=== PATIENT | female | born 1935 | race Caucasian/White ===

== ENCOUNTER 2017-10-18 11:58 | Inpatient (IN) | payer MEDICARE, BC ==
[2017-10-18] MEDS ORDERED: Ondansetron 4 MG Tab.DIS PO PRN (14:57)
[2017-10-18] MEDS ORDERED: Docusate Sodium 100 MG Cap PO PRN (14:57)
[2017-10-18] MEDS ORDERED: Ibuprofen 400 MG Tab PO PRN (14:57)
[2017-10-18] MEDS ORDERED: Acetaminophen 325 MG Tab PO PRN (14:57)
[2017-10-18] MEDS ORDERED: Non-Formulary Medication 1 Each (Estradiol [Estrace 0.01% Vaginal Crm] 1 APPLIC) VAG SCH ×2 (15:15→15:30)
[2017-10-18] MEDS ORDERED: Non-Formulary Medication 1 Each (Acetaminophen [Tylenol] 650 MG) PO SCH (15:15)
--- NOTE | 2017-10-18 16:58 | ER ---
DATE SEEN: 10/18/2017 The patient has a cath urine specimen performed and pH was 7, large leukocyte esterase, greater than 100 wbc's, few epithelial cells, many bacteria. Culture pending. Possibly she may be having asymptomatic bacteriuria (high probability), so may not be needed to be treated according to [place] [employer] recommendation for her age. She is on nitrofurantoin. She will use that until the prescription is finalized. At present, asymptomatic bacteriuria and in reality would probably get along without this antibiotic, but I will defer to the discretion doctor who prescribed this medicine. Also according to the Beers criteria and ASID recommendations : not treat asymptomatic bacteriuria as it could increase resistance and also increase invasive other noncommensal organisms. /[id number] JONY/MARLEY BARRIENTOS
--- NOTE | 2017-10-18 17:11 | PCM.HP ---
H&P History of Present Illness - General Date of Service: 10/18/17 Admit Problem/Dx: Admission Diagnosis/Problem Admission Diagnosis/Problem Falls Source of Information: Family History Limitations: Reports: Altered Mental Status - History of Present Illness Initial Comments - Free Text/Narative: This is an 82-year-old female patient this recently moved the area to be closer her daughter. She is had a stroke and some dementia. She is living in an apartment and her daughter went over today and found her on the floor naked calling out her sister. She was not able to get up. His had a CVA in the past. She was taken by EMS the ER and had a CT that was negative reported by the ER doc to me. She has had UTIs and has had the urine has nitrite positive and white cells. The urologist has seen her and felt her urine probably is not clean all the time and not to treat a possible because of resistant strains. The patient states she does not a dysuria or pyuria or hematuria. The daughter states she's had some incontinence. Which is new. The daughter states she's been very confused. No fevers chills or back pain. No coughing or wheezing or diarrhea. - Related Data Allergies/Adverse Reactions: Allergies Allergy/AdvReac Type Severity Reaction Status Date / Time No Known Allergies Allergy Verified 10/18/17 15:06 Home Medications: Home Meds Acetaminophen [Tylenol] 650 mg PO Q4HR 10/18/17 [History] Cholecalciferol (Vitamin D3) [Vitamin D3] 2,000 unit PO DAILY 10/18/17 [History] Docusate Sodium [Colace] 100 mg PO BID 10/18/17 [History] Estradiol [Estrace 0.01% Vaginal Crm] 1 applic VAG ASDIRECTED 10/18/17 [History] Levothyroxine 112 mcg PO ACBREAKFAST 10/18/17 [History] Melatonin 3 mg PO BEDTIME 10/18/17 [History] Multivitamin [Multi-Vitamin Daily] 1 tab PO DAILY 10/18/17 [History] Nitrofurantoin Monohyd/M-Cryst [Macrobid 100 mg Capsule] 100 mg PO BID 10/18/17 [History] Pantoprazole Sodium [Protonix] 40 mg PO ACBREAKFAST 10/18/17 [History] Ranitidine HCl [Zantac] 150 mg PO DAILY 10/18/17 [History] Rivaroxaban [Xarelto] 20 mg PO WITHDINNER 10/18/17 [History] Rosuvastatin [Crestor] 20 mg PO DAILY 10/18/17 [History] Past Medical History HEENT History: Reports: Hard of Hearing, Impaired Vision Cardiovascular History: Reports: High Cholesterol, Hypertension, Pacemaker, Other (See Below) (A. fib) Respiratory History: Reports: Other (See Below) Other Respiratory History: former smoker. Gastrointestinal History: Reports: GERD Genitourinary History: Reports: Urinary Incontinence, UTI, Recurrent, Other ( See Below) Other Genitourinary History: has overactive bladder-takes oxybutynin. 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 Use walker for ambulation. Neurological History: Reports: CVA Endocrine/Metabolic History: Reports: Hypothyroidism Oncologic (Cancer) History: Reports: Other (See Below) (Papillary thyroid carcinoma) - Infectious Disease History Infectious Disease History: Reports: Other (See Below) Other Infectious Disease History: pt poor historian for this information - Past Surgical History Respiratory Surgical History: Reports: Lung Biopsies Social & Family History - Family History Family Medical History: Noncontributory - Tobacco Use Smoking Status *Q: Former Smoker Years of Tobacco use: 40 Packs/Tins Daily: 0.5 Used Tobacco, but Quit: Yes Month/Year Tobacco Last Used: unknown - Caffeine Use Caffeine Use: Reports: Coffee Other Caffeine Use: 1 cup a day - Recreational Drug Use Recreational Drug Use: No H&P Review of Systems - Review of Systems: Review Of Systems: See Below General: Reports: Weakness HEENT: Reports: No Symptoms Pulmonary: Reports: No Symptoms Cardiovascular: Reports: No Symptoms Gastrointestinal: Reports: No Symptoms Genitourinary: Reports: No Symptoms Musculoskeletal: Reports: No Symptoms Skin: Reports: No Symptoms Psychiatric: Reports: Confusion (Per daughter) Neurological: Reports: No Symptoms Hematologic/Lymphatic: Reports: No Symptoms Immunologic: Reports: No Symptoms Exam - Exam Exam: See Below - Vital Signs Vital Signs: Last Vital Signs Temp 98.0 F 10/18/17 12:16 Pulse 63 10/18/17 14:00 Resp 21 H 10/18/17 14:00 BP 146/82 H 10/18/17 14:00 Pulse Ox 95 10/18/17 14:00 Weight: 160 lb 14.4 oz - Exam General: Alert, Cooperative. No: Oriented HEENT: Hearing Intact, Mucosa Moist & [place], Posterior Pharynx Clear, TMs Clear Neck: Supple, Trachea Midline. No: Lymphadenopathy, Carotid Bruit, JVD Lungs: Clear to Auscultation, Normal Respiratory Effort. No: Crackles, Rales, Rhonchi, Rub Cardiovascular: Regular Rate, Regular Rhythm. No: Tachycardia GI/Abdominal Exam: Normal Bowel Sounds, Soft, Non-Tender, No Distention, No Abnormal Bruit, No Mass Back Exam: Normal Inspection, Full Range of Motion. No: Vertebral Tenderness Extremities: Normal Inspection, Normal Range of Motion, Non-Tender, No Pedal Edema, Normal Capillary Refill Skin: Warm, Dry, Intact Neurological: Normal Speech, Normal Tone Neuro Extensive - Mental Status: Alert, Normal Mood/Affect. No: Oriented x3, Normal Cognition Psychiatric: Alert - Patient Data Lab Results Last 24 hrs: Laboratory Results - last 24 hr 10/18/17 10/18/17 10/18/17 Range/Units 12:45 12:45 12:45 WBC 11.6 (4.5-12.0) X10-3/uL RBC 4.98 (3.23-5.20) x10(6)uL Hgb 15.2 (11.5-15.5) g/dL Hct 44.6 (30.0-51.3) % MCV 89.5 (80-96) fL MCH 30.6 (27.7-33.6) pg MCHC 34.2 (32.2-35.4) g/dL RDW 12.8 (11.5-15.5) % Plt Count 190 (125-369) X10(3)uL MPV 7.5 (7.4-10.4) fL Neut % (Auto) 83.8 H (46-82) % Lymph % (Auto) 6.9 L (13-37) % Ponce % (Auto) 7.5 (4-12) % Eos % (Auto) 1 (1.0-5.0) % Baso % (Auto) 1 (0-2) % Neut # (Auto) 9.7 H (1.6-8.3) # Lymph # (Auto) 0.8 (0.6-5.0) # Ponce # (Auto) 0.9 (0.0-1.3) # Eos # (Auto) 0.1 (0.0-0.8) # Baso # (Auto) 0.1 (0.0-0.2) # PT 10.4 (8.7-11.1) INR 1.07 (0.89-1.13) APTT (24.4-33.2) SECONDS Sodium 140 (135-145) mmol/L Potassium 4.0 (3.5-5.3) mmol/L Chloride 103 (100-110) mmol/L Carbon Dioxide 25 (21-32) mmol/L BUN 23 H (7-18) mg/dL Creatinine 1.3 H (0.55-1.02) mg/dL Est Cr Clr Drug Dosing 28.31 mL/min Estimated GFR (MDRD) 39 L (>60) BUN/Creatinine Ratio 17.7 (9-20) Glucose 130 H (80-116) mg/dL Calcium 10.1 (8.6-10.2) mg/dL Total Bilirubin 0.7 (0.1-1.3) mg/dL AST 16 (5-25) IU/L ALT 18 (12-36) U/L Alkaline Phosphatase 76 (56-112) IU/L Creatine Kinase 66 (60-160) IU/L Troponin I (<0.017-0.056) ng/mL NT-Pro-B Natriuret Pep (<=450) pg/mL Total Protein 7.2 (6.0-8.0) g/dL Albumin 3.8 (3.2-4.6) g/dL Globulin 3.4 g/dL Albumin/Globulin Ratio 1.1 Urine Color (YELLOW) Urine Appearance (CLEAR) Urine pH (5.0-6.5) Ur Specific [place] (1.010-1.025) Urine Protein (NEGATIVE) mg/dL Urine Glucose (UA) (NEGATIVE) mg/dL Urine Ketones (NEGATIVE) mg/dL Urine Occult Blood (NEGATIVE) Urine Nitrite (NEGATIVE) Urine Bilirubin (NEGATIVE) Urine Urobilinogen (NEGATIVE) mg/dL Ur Leukocyte Esterase (NEGATIVE) Urine RBC (0) Urine WBC (0) Ur Squamous Epith Cells (NS,R,O) Urine Bacteria (NS) 10/18/17 10/18/1710/18/18 Range/Units 12:45 12:45 14:11 WBC (4.5-12.0) X10-3/uL RBC (3.23-5.20) x10(6)uL Hgb (11.5-15.5) g/dL Hct (30.0-51.3) % MCV (80-96) fL MCH (27.7-33.6) pg MCHC (32.2-35.4) g/dL RDW (11.5-15.5) % Plt Count (125-369) X10(3)uL MPV (7.4-10.4) fL Neut % (Auto) (46-82) % Lymph % (Auto) (13-37) % Ponce % (Auto) (4-12) % Eos % (Auto) (1.0-5.0) % Baso % (Auto) (0-2) % Neut # (Auto) (1.6-8.3) # Lymph # (Auto) (0.6-5.0) # Ponce # (Auto) (0.0-1.3) # Eos # (Auto) (0.0-0.8) # Baso # (Auto) (0.0-0.2) # PT (8.7-11.1) INR (0.89-1.13) APTT 27.2 (24.4-33.2) SECONDS Sodium (135-145) mmol/L Potassium (3.5-5.3) mmol/L Chloride (100-110) mmol/L Carbon Dioxide (21-32) mmol/L BUN (7-18) mg/dL Creatinine (0.55-1.02) mg/dL Est Cr Clr Drug Dosing mL/min Estimated GFR (MDRD) (>60) BUN/Creatinine Ratio (9-20) Glucose (80-116) mg/dL Calcium (8.6-10.2) mg/dL Total Bilirubin (0.1-1.3) mg/dL AST (5-25) IU/L ALT (12-36) U/L Alkaline Phosphatase (56-112) IU/L Creatine Kinase (60-160) IU/L Troponin I < 0.017 L (<0.017-0.056) ng/mL NT-Pro-B Natriuret Pep 243 (<=450) pg/mL Total Protein (6.0-8.0) g/dL Albumin (3.2-4.6) g/dL Globulin g/dL Albumin/Globulin Ratio Urine Color Yellow (YELLOW) Urine Appearance Cloudy (CLEAR) Urine pH 7.0 H (5.0-6.5) Ur Specific [place] 1.015 (1.010-1.025) Urine Protein Negative (NEGATIVE) mg/dL Urine Glucose (UA) Normal (NEGATIVE) mg/dL Urine Ketones Negative (NEGATIVE) mg/dL Urine Occult Blood Negative (NEGATIVE) Urine Nitrite Negative (NEGATIVE) Urine Bilirubin Negative (NEGATIVE) Urine Urobilinogen Normal (NEGATIVE) mg/dL Ur Leukocyte Esterase Large H (NEGATIVE) Urine RBC 0-5 (0) Urine WBC >100 H (0) Ur Squamous Epith Cells Few H (NS,R,O) Urine Bacteria Many H (NS) Result Diagrams: 10/18/17 12:45 10/18/17 12:45 - Problem List (1) UTI (urinary tract infection) SNOMED Code(s): 29506944 ICD Code: N39.0 - URINARY TRACT INFECTION, SITE NOT SPECIFIED Status: Acute Current Visit: Yes (2) Confusion SNOMED Code(s): 936324511 ICD Code: R41.0 - DISORIENTATION, UNSPECIFIED Status: Acute Current Visit : Yes (3) Dementia SNOMED Code(s): 11797390 ICD Code: F03.90 - UNSPECIFIED DEMENTIA WITHOUT BEHAVIORAL DISTURBANCE Status: Acute Current Visit: Yes (4) Fall SNOMED Code(s): 8248534, 897368457 ICD Code: W19.XXXA - UNSPECIFIED FALL, INITIAL ENCOUNTER Status: Acute Current Visit: Yes (5) Palliative care status SNOMED Code(s): 954355305 ICD Code: Z51.5 - ENCOUNTER FOR PALLIATIVE CARE Status: Acute Current Visit: Yes Problem List Initiated/Reviewed/Updated: Yes Orders Last 24hrs: Active Orders 24 hr Category Date Time Status Patient Status [ADT] Routine ADT 10/18/17 14:57 Active Cardiac Monitoring [RC] 08,16,00 Care 10/18/17 15:00 Active Communication Order [RC] ROUTINE Care 10/18/17 15:04 Active EKG Documentation Completion [RC] ASDIRECTED Care 10/18/17 12:33 Active Insert Urinary Catheter [OM.PC] Q24H Care 10/18/17 14:00 Ordered Oxygen Therapy [RC] PRN Care 10/18/17 14:57 Active Pulse Oximetry [RC] PRN Care 10/18/17 15:01 Active Up With Assistance [RC] 09,13,17,21 Care 10/18/17 14:57 Active VTE/DVT Education [RC] Per Unit Routine Care 10/18/17 14:57 Active Vital Signs [RC] 04,08,12,16,20,00 Care 10/18/17 14:57 Active Cervical Spine wo Cont [CT] Stat Exams 10/18/17 12:32 Taken Chest 1V Frontal [CR] Stat Exams 10/18/17 13:36 Taken Head wo Cont [CT] Stat Exams 10/18/17 12:32 Taken CULTURE URINE [RM] Stat Lab 10/18/17 14:40 Ordered URINALYSIS W/MICROSCOPIC [UA W/MICROSCOPIC] [URIN] Stat Lab 10/18/17 14:11 Ordered Acetaminophen [Tylenol] Med 10/18/17 14:57 Active 650 mg PO Q4H PRN Acetaminophen [Tylenol] Med 10/18/17 15:15 Pending 650 mg PO Q4HR Cholecalciferol (Vitamin D3) [Vitamin D3] Med 10/19/17 09:00 Active 2,000 units PO DAILY Docusate Sodium [Colace] Med 10/18/17 21:00 Active 100 mg PO BID Docusate Sodium [Colace] Med 10/18/17 14:57 Active 100 mg PO BID PRN Estradiol [Estrace 0.01% Vaginal Crm] Med 10/18/17 15:30 Pending 1 applic VAG ASDIRECTED Famotidine [Pepcid] Med 10/19/17 09:00 Active 20 mg PO DAILY Ibuprofen [Motrin] Med 10/18/17 14:57 Active 400 mg PO Q6H PRN Levothyroxine Med 10/19/17 06:00 Active 112 mcg PO DAILY@0600 Multivitamins [Tab-A-Latoya] Med 10/19/17 09:00 Active 1 tab PO DAILY Nitrofurantoin Monohyd/M-Cryst [Macrobid 100 Mg Capsule Med 10/18/17 21:00 Pending ] 100 mg PO BID Ondansetron [Zofran ODT] Med 10/18/17 14:57 Active 4 mg PO Q6H PRN Pantoprazole [ProTONIX] Med 10/19/17 07:30 Active 40 mg PO ACBREAKFAST Rivaroxaban [Xarelto] Med 10/18/17 18:00 Active 20 mg PO WITHDINNER Rosuvastatin [Crestor] Med 10/19/17 09:00 Active 20 mg PO DAILY Resuscitation Status Routine Resus Stat 10/18/17 14:57 Ordered EKG 12 Lead [EK] Routine Ther 10/18/17 12:32 Ordered Medication Orders Acetaminophen (Tylenol) 650 mg PO Q4H PRN PRN Reason: Pain (Mild 1-3)/fever Cholecalciferol (Vitamin D3) 2,000 units PO DAILY [facility] Docusate Sodium (Colace) 100 mg PO BID PRN PRN Reason: Constipation Docusate Sodium (Colace) 100 mg PO BID [facility] Famotidine (Pepcid) 20 mg PO DAILY [facility] Ibuprofen (Motrin) 400 mg PO Q6H PRN PRN Reason: Pain (mild 1-3) Levothyroxine Sodium (Levothyroxine) 112 mcg PO DAILY@0600 [facility] Multivitamins/Minerals/Vitamin C (Tab-A-Latoya) 1 tab PO DAILY [facility] Non-Formulary Medication (Acetaminophen [Tylenol]) 650 mg PO Q4HR [facility] Non-Formulary Medication (Estradiol [Estrace 0.01% Vaginal Crm]) 1 applic VAG ASDIRECTED [facility] Non-Formulary Medication (Nitrofurantoin Monohyd/M-Cryst [Macrobid 100 Mg Capsule]) 100 mg PO BID [facility] Ondansetron HCl (Zofran Odt) 4 mg PO Q6H PRN PRN Reason: nausea, able to take PO Pantoprazole Sodium (Protonix) 40 mg PO ACBREAKFAST [facility] Rivaroxaban (Xarelto) 20 mg PO WITHDINNER [facility] Rosuvastatin Calcium (Crestor) 20 mg PO DAILY [facility] Assessment/Plan Comment:: . Admit for observation. 2. Rocephin 1 g every 24 hours 3. Restart medications 4. VTE prophylaxis-continues her Xarelto 5. Up with assist. 6. Regular diet
[2017-10-18] MEDS ORDERED: cefTRIAXone 1,000 MG in Sodium Chloride 0.9% 50 ML IV SCH (17:30)
[2017-10-18] MEDS ORDERED: cefTRIAXone 1,000 MG VIAL IVPUSH SCH (17:30)
[2017-10-18] MEDS: Sodium Chloride 0.9% 1,000 ML IV SCH (17:43)
[2017-10-18] MEDS: cefTRIAXone 1,000 MG VIAL IV SCH (17:50)
[2017-10-18] MEDS ORDERED: Rivaroxaban 10 MG Tab PO SCH (18:00)
[2017-10-18] MEDS ORDERED: RANTIDINE PO SCH (21:15)
[2017-10-19] MEDS: Sodium Chloride 0.9% 1,000 ML IV SCH (03:18)
[2017-10-19] MEDS ORDERED: Levothyroxine 112 MCG Tab **OWN MED PO SCH (06:00)
[2017-10-19] MEDS: Pantoprazole 40 MG Tab.CR PO SCH (08:21)
[2017-10-19] MEDS ORDERED: ROSUVASTATIN 20 MG PO SCH (09:00)
[2017-10-19] MEDS ORDERED: MULTIVITAMIN PO SCH (09:00)
[2017-10-19] MEDS ORDERED: CHOLECALCIFEROL PO SCH (09:00)
[2017-10-19] MEDS ORDERED: Famotidine 20 MG Tab PO SCH (09:00)
--- NOTE | 2017-10-19 09:27 | PCM.PN ---
- General Info Date of Service: 10/19/17 Admission Dx/Problem (Free Text): Patient states she feels tired today. Nurses report she is confused and needed to assist last night to walk in 1 today. She denies dysuria, pyuria. Nurses reported she did have some urinary incontinence yesterday but none today. He denies fevers, chills. she does not know who the president is but she does remember that she is in the hospital but she thinks it somewhere else. - Patient Data Vitals - Most Recent: Last Vital Signs Temp 98.6 F 10/19/17 03:30 Pulse 65 10/19/17 03:30 Resp 18 10/19/17 03:30 BP 115/63 10/19/17 03:30 Pulse Ox 95 10/19/17 03:30 Weight - Most Recent: 160 lb 14.4 oz I&O - Last 24 Hours: Intake & Output 10/18/17 10/19/17 10/19/17 22:59 06:59 14:59 Intake Total 341 773 Balance 341 773 Lab Results Last 24 Hours: Laboratory Results - last 24 hr 10/18/17 10/18/17 10/18/17 Range/Units 12:45 12:45 12:45 WBC 11.6 (4.5-12.0) X10-3/uL RBC 4.98 (3.23-5.20) x10(6)uL Hgb 15.2 (11.5-15.5) g/dL Hct 44.6 (30.0-51.3) % MCV 89.5 (80-96) fL MCH 30.6 (27.7-33.6) pg MCHC 34.2 (32.2-35.4) g/dL RDW 12.8 (11.5-15.5) % Plt Count 190 (125-369) X10(3)uL MPV 7.5 (7.4-10.4) fL Neut % (Auto) 83.8 H (46-82) % Lymph % (Auto) 6.9 L (13-37) % Henry % (Auto) 7.5 (4-12) % Eos % (Auto) 1 (1.0-5.0) % Baso % (Auto) 1 (0-2) % Neut # (Auto) 9.7 H (1.6-8.3) # Lymph # (Auto) 0.8 (0.6-5.0) # Henry # (Auto) 0.9 (0.0-1.3) # Eos # (Auto) 0.1 (0.0-0.8) # Baso # (Auto) 0.1 (0.0-0.2) # PT 10.4 (8.7-11.1) INR 1.07 (0.89-1.13) APTT (24.4-33.2) SECONDS Sodium 140 (135-145) mmol/L Potassium 4.0 (3.5-5.3) mmol/L Chloride 103 (100-110) mmol/L Carbon Dioxide 25 (21-32) mmol/L BUN 23 H (7-18) mg/dL Creatinine 1.3 H (0.55-1.02) mg/dL Est Cr Clr Drug Dosing 28.31 mL/min Estimated GFR (MDRD) 39 L (>60) BUN/Creatinine Ratio 17.7 (9-20) Glucose 130 H (80-116) mg/dL Calcium 10.1 (8.6-10.2) mg/dL Total Bilirubin 0.7 (0.1-1.3) mg/dL AST 16 (5-25) IU/L ALT 18 (12-36) U/L Alkaline Phosphatase 76 (56-112) IU/L Creatine Kinase 66 (60-160) IU/L Troponin I (<0.017-0.056) ng/mL NT-Pro-B Natriuret Pep (<=450) pg/mL Total Protein 7.2 (6.0-8.0) g/dL Albumin 3.8 (3.2-4.6) g/dL Globulin 3.4 g/dL Albumin/Globulin Ratio 1.1 Urine Color (YELLOW) Urine Appearance (CLEAR) Urine pH (5.0-6.5) Ur Specific Levels (1.010-1.025) Urine Protein (NEGATIVE) mg/dL Urine Glucose (UA) (NEGATIVE) mg/dL Urine Ketones (NEGATIVE) mg/dL Urine Occult Blood (NEGATIVE) Urine Nitrite (NEGATIVE) Urine Bilirubin (NEGATIVE) Urine Urobilinogen (NEGATIVE) mg/dL Ur Leukocyte Esterase (NEGATIVE) Urine RBC (0) Urine WBC (0) Ur Squamous Epith Cells (NS,R,O) Urine Bacteria (NS) 10/18/17 10/18/17 10/18/17 Range/Units 12:45 12:45 14:11 WBC (4.5-12.0) X10-3/uL RBC (3.23-5.20) x10(6)uL Hgb (11.5-15.5) g/dL Hct (30.0-51.3) % MCV (80-96) fL MCH (27.7-33.6) pg MCHC (32.2-35.4) g/dL RDW (11.5-15.5) % Plt Count (125-369) X10(3)uL MPV (7.4-10.4) fL Neut % (Auto) (46-82) % Lymph % (Auto) (13-37) % Henry % (Auto) (4-12) % Eos % (Auto) (1.0-5.0) % Baso % (Auto) (0-2) % Neut # (Auto) (1.6-8.3) # Lymph # (Auto) (0.6-5.0) # Henry # (Auto) (0.0-1.3) # Eos # (Auto) (0.0-0.8) # Baso # (Auto) (0.0-0.2) # PT (8.7-11.1) INR (0.89-1.13) APTT 27.2 (24.4-33.2) SECONDS Sodium (135-145) mmol/L Potassium (3.5-5.3) mmol/L Chloride (100-110) mmol/L Carbon Dioxide (21-32) mmol/L BUN (7-18) mg/dL Creatinine (0.55-1.02) mg/dL Est Cr Clr Drug Dosing mL/min Estimated GFR (MDRD) (>60) BUN/Creatinine Ratio (9-20) Glucose (80-116) mg/dL Calcium (8.6-10.2) mg/dL Total Bilirubin (0.1-1.3) mg/dL AST (5-25) IU/L ALT (12-36) U/L Alkaline Phosphatase (56-112) IU/L Creatine Kinase (60-160) IU/L Troponin I < 0.017 L (<0.017-0.056) ng/mL NT-Pro-B Natriuret Pep 243 (<=450) pg/mL Total Protein (6.0-8.0) g/dL Albumin (3.2-4.6) g/dL Globulin g/dL Albumin/Globulin Ratio Urine Color Yellow (YELLOW) Urine Appearance Cloudy (CLEAR) Urine pH 7.0 H (5.0-6.5) Ur Specific Levels 1.015 (1.010-1.025) Urine Protein Negative (NEGATIVE) mg/dL Urine Glucose (UA) Normal (NEGATIVE) mg/dL Urine Ketones Negative (NEGATIVE) mg/dL Urine Occult Blood Negative (NEGATIVE) Urine Nitrite Negative (NEGATIVE) Urine Bilirubin Negative (NEGATIVE) Urine Urobilinogen Normal (NEGATIVE) mg/dL Ur Leukocyte Esterase Large H (NEGATIVE) Urine RBC 0-5 (0) Urine WBC >100 H (0) Ur Squamous Epith Cells Few H (NS,R,O) Urine Bacteria Many H (NS) 10/19/17 Range/Units 06:00 WBC (4.5-12.0) X10-3/uL RBC (3.23-5.20) x10(6)uL Hgb (11.5-15.5) g/dL Hct (30.0-51.3) % MCV (80-96) fL MCH (27.7-33.6) pg MCHC (32.2-35.4) g/dL RDW (11.5-15.5) % Plt Count (125-369) X10(3)uL MPV (7.4-10.4) fL Neut % (Auto) (46-82) % Lymph % (Auto) (13-37) % Henry % (Auto) (4-12) % Eos % (Auto) (1.0-5.0) % Baso % (Auto) (0-2) % Neut # (Auto) (1.6-8.3) # Lymph # (Auto) (0.6-5.0) # Henry # (Auto) (0.0-1.3) # Eos # (Auto) (0.0-0.8) # Baso # (Auto) (0.0-0.2) # PT (8.7-11.1) INR (0.89-1.13) APTT (24.4-33.2) SECONDS Sodium 140 (135-145) mmol/L Potassium 4.0 (3.5-5.3) mmol/L Chloride 107 (100-110) mmol/L Carbon Dioxide 25 (21-32) mmol/L BUN 21 H (7-18) mg/dL Creatinine 1.2 H (0.55-1.02) mg/dL Est Cr Clr Drug Dosing 30.67 mL/min Estimated GFR (MDRD) 43 L (>60) BUN/Creatinine Ratio 17.5 (9-20) Glucose 113 (80-116) mg/dL Calcium 9.0 (8.6-10.2) mg/dL Total Bilirubin (0.1-1.3) mg/dL AST (5-25) IU/L ALT (12-36) U/L Alkaline Phosphatase (56-112) IU/L Creatine Kinase (60-160) IU/L Troponin I (<0.017-0.056) ng/mL NT-Pro-B Natriuret Pep (<=450) pg/mL Total Protein (6.0-8.0) g/dL Albumin (3.2-4.6) g/dL Globulin g/dL Albumin/Globulin Ratio Urine Color (YELLOW) Urine Appearance (CLEAR) Urine pH (5.0-6.5) Ur Specific Levels (1.010-1.025) Urine Protein (NEGATIVE) mg/dL Urine Glucose (UA) (NEGATIVE) mg/dL Urine Ketones (NEGATIVE) mg/dL Urine Occult Blood (NEGATIVE) Urine Nitrite (NEGATIVE) Urine Bilirubin (NEGATIVE) Urine Urobilinogen (NEGATIVE) mg/dL Ur Leukocyte Esterase (NEGATIVE) Urine RBC (0) Urine WBC (0) Ur Squamous Epith Cells (NS,R,O) Urine Bacteria (NS) Med Orders - Current: Current Medications Acetaminophen (Tylenol) 650 mg PO Q4H PRN PRN Reason: Pain (Mild 1-3)/fever Ceftriaxone Sodium (Rocephin) 1,000 mg IV Q24H [facility] Last Admin: 10/18/17 17:50 Dose: 1,000 mg Docusate Sodium (Colace) 100 mg PO BID [facility] Last Admin: 10/19/17 08:21 Dose: 100 mg Sodium Chloride (Normal Saline) 1,000 mls @ 100 mls/hr IV ASDIRECTED [facility] Last Admin: 10/19/17 03:18 Dose: 100 mls/hr Ibuprofen (Motrin) 400 mg PO Q6H PRN PRN Reason: Pain (mild 1-3) Levothyroxine Sodium (Levothyroxine) 112 mcg PO DAILY@0600 [facility] Last Admin: 10/19/17 05:55 Dose: 112 mcg Multivitamins/Minerals/Vitamin C (Tab-A-Latoya) 1 tab PO DAILY [facility] Last Admin: 10/19/17 08:23 Dose: 1 tab Ondansetron HCl (Zofran Odt) 4 mg PO Q6H PRN PRN Reason: nausea, able to take PO Pantoprazole Sodium (Protonix) 40 mg PO ACBREAKFAST [facility] Last Admin: 10/19/17 08:21 Dose: 40 mg Cholecalciferiol Vitamin D3 2000 Iu Tab Own Med 0 each PO DAILY [facility] Last Admin: 10/19/17 08:22 Dose: 1 each Rosuvastatin 20mg (Tab Own Med) 0 each PO DAILY [facility] Last Admin: 10/19/17 08:22 Dose: 1 each Xarelto 20mg Tab (Own Med) 0 each PO DAILY@1200 [facility] Rantidine 150mg Tab (Own Med) 0 each PO BEDTIME [facility] Last Admin: 10/18/17 21:32 Dose: 1 each Discontinued Medications Ceftriaxone Sodium (Rocephin) 1,000 mg IVPUSH Q24H [facility] Last Admin: 10/18/17 21:11 Dose: Not Given Docusate Sodium (Colace) 100 mg PO BID PRN PRN Reason: Constipation Famotidine (Pepcid) 20 mg PO DAILY [facility] Ceftriaxone Sodium 1,000 mg/ (Sodium Chloride) 50 mls @ 100 mls/hr IV Q24H [facility] Last Admin: 10/18/17 21:11 Dose: Not Given Non-Formulary Medication (Acetaminophen [Tylenol]) 650 mg PO Q4HR [facility] Non-Formulary Medication (Estradiol [Estrace 0.01% Vaginal Crm]) 1 applic VAG ASDIRECTED [facility] Non-Formulary Medication (Nitrofurantoin Monohyd/M-Cryst [Macrobid 100 Mg Capsule]) 100 mg PO BID [facility] Non-Formulary Medication (Estradiol [Estrace 0.01% Vaginal Crm]) 1 applic VAG ASDIRECTED [facility] Non-Formulary Medication (Nitrofurantoin Monohyd/M-Cryst [Macrobid 100 Mg Capsule]) 100 mg PO BID [facility] Rivaroxaban (Xarelto) 20 mg PO WITHDINNER [facility] Last Admin: 10/18/17 18:45 Dose: Not Given - Exam General: Alert, Cooperative. No: Oriented Lungs: Clear to Auscultation, Normal Respiratory Effort Cardiovascular: Regular Rate, No Murmurs, Irregular Rhythm GI/Abdominal Exam: Soft, Non-Tender Extremities: No Pedal Edema - Problem List & Annotations (1) UTI (urinary tract infection) SNOMED Code(s): 65458691 Code(s): N39.0 - URINARY TRACT INFECTION, SITE NOT SPECIFIED Status: Acute Current Visit: Yes (2) Confusion SNOMED Code(s): 081884368 Code(s): R41.0 - DISORIENTATION, UNSPECIFIED Status: Acute Current Visit : Yes (3) Dementia SNOMED Code(s): 86035662 Code(s): F03.90 - UNSPECIFIED DEMENTIA WITHOUT BEHAVIORAL DISTURBANCE Status: Acute Current Visit: Yes (4) Fall SNOMED Code(s): 7651471, 215681575 Code(s): W19.XXXA - UNSPECIFIED FALL, INITIAL ENCOUNTER Status: Acute Current Visit: Yes (5) Palliative care status SNOMED Code(s): 974363480 Code(s): Z51.5 - ENCOUNTER FOR PALLIATIVE CARE Status: Acute Current Visit: Yes (6) Chronic renal failure, stage 3 (moderate) SNOMED Code(s): 31856693, 037985558 Code(s): N18.3 - CHRONIC KIDNEY DISEASE, STAGE 3 (MODERATE) Status: Acute Current Visit: Yes - Problem List Review Problem List Initiated/Reviewed/Updated: Yes - My Orders Last 24 Hours: My Active Orders 10/18/17 17:30 Sodium Chloride 0.9% [Normal Saline] 1,000 ml IV ASDIRECTED cefTRIAXone [Rocephin] 1,000 mg IV Q24H 10/18/17 21:15 Patient's Own Medication [Ptom] 0 each PO BEDTIME 10/19/17 Breakfast Regular Diet [DIET] - Assessment Assessment:: Change her to inpatient. PTOT consult. DC IV fluids and saline lock DC telemetry IV - Plan Plan:: . Admit for observation. 2. Rocephin 1 g every 24 hours 3. Restart medications 4. VTE prophylaxis-continues her Xarelto 5. Up with assist. 6. Regular diet
[2017-10-19] MEDS ORDERED: XARELTO 20 MG PO SCH (12:00)
[2017-10-19] MEDS ORDERED: Azithromycin 500 MG Tab PO ONE (16:08)
[2017-10-19] MEDS: cefTRIAXone 1,000 MG VIAL IV SCH (17:28)
[2017-10-19] MEDS: Sodium Chloride 0.9% 10 ML Syringe FLUSH PRN (17:29)
[2017-10-19] MEDS: Docusate Sodium 100 MG Cap PO SCH (20:49)
[2017-10-19] MEDS: Famotidine 20 MG Tab PO SCH (20:50)
[2017-10-20] MEDS: Levothyroxine 112 MCG Tab PO SCH (05:30)
--- NOTE | 2017-10-20 08:53 | PCM.PN ---
- General Info Date of Service: 10/20/17 Admission Dx/Problem (Free Text): Patient states she is jittery today and emotional. According to her daughter they took her off Olexa 10 mg total per gram about a week ago. She says she's anxious. She is put on Celexa 5 years ago when her son . According to her other daughter nobody ever reevaluated and trying to wean her off. She denies cough, shortness of breath, dysuria, pyuria, hematuria. Nurses report with a walker she does get a little winded. - Patient Data Vitals - Most Recent: Last Vital Signs Temp 98.1 F 10/20/17 00:00 Pulse 64 10/20/17 00:00 Resp 20 10/20/17 00:00 BP 169/83 H 10/20/17 00:00 Pulse Ox 95 10/20/17 00:00 Weight - Most Recent: 160 lb 14.4 oz Luis Results Last 24 Hours: Microbiology 10/18/17 14:40 Urine Culture - Preliminary Urine, Catheterized NO GROWTH AFTER 1 DAY Med Orders - Current: Current Medications Acetaminophen (Tylenol) 650 mg PO Q4H PRN PRN Reason: Pain (Mild 1-3)/fever Azithromycin (Zithromax) 250 mg PO DAILY [facility] Ceftriaxone Sodium (Rocephin) 1,000 mg IV Q24H [facility] Last Admin: 10/19/17 17:28 Dose: 1,000 mg Cholecalciferol (Vitamin D3) 2,000 units PO DAILY [facility] Citalopram Hydrobromide (Celexa) 10 mg PO DAILY [facility] Docusate Sodium (Colace) 100 mg PO BID [facility] Last Admin: 10/19/17 20:49 Dose: 100 mg Famotidine (Pepcid) 20 mg PO BEDTIME [facility] Last Admin: 10/19/17 20:50 Dose: 20 mg Ibuprofen (Motrin) 400 mg PO Q6H PRN PRN Reason: Pain (mild 1-3) Levothyroxine Sodium (Levothyroxine) 112 mcg PO DAILY@0600 [facility] Last Admin: 10/20/17 05:30 Dose: 112 mcg Lisinopril (Prinivil) 10 mg PO DAILY [facility] Lorazepam (Ativan) 0.25 mg PO Q6H PRN PRN Reason: Anxiety Multivitamins/Minerals/Vitamin C (Tab-A-Latoya) 1 tab PO DAILY [facility] Ondansetron HCl (Zofran Odt) 4 mg PO Q6H PRN PRN Reason: nausea, able to take PO Pantoprazole Sodium (Protonix) 40 mg PO ACBREAKFAST [facility] Last Admin: 10/19/17 08:21 Dose: 40 mg Rivaroxaban (Xarelto) 20 mg PO DAILY@1200 [facility] Rosuvastatin Calcium (Crestor) 20 mg PO DAILY [facility] Sodium Chloride (Saline Flush) 10 ml FLUSH ASDIRECTED PRN PRN Reason: Keep Vein Open Last Admin: 10/19/17 17:29 Dose: 10 ml Discontinued Medications Azithromycin (Zithromax) 500 mg PO ONETIME ONE Stop: 10/19/17 16:09 Last Admin: 10/19/17 17:12 Dose: 500 mg Ceftriaxone Sodium (Rocephin) 1,000 mg IVPUSH Q24H [facility] Last Admin: 10/18/17 21:11 Dose: Not Given Docusate Sodium (Colace) 100 mg PO BID PRN PRN Reason: Constipation Docusate Sodium (Colace) 100 mg PO BID [facility] Last Admin: 10/19/17 08:21 Dose: 100 mg Famotidine (Pepcid) 20 mg PO DAILY [facility] Ceftriaxone Sodium 1,000 mg/ (Sodium Chloride) 50 mls @ 100 mls/hr IV Q24H [facility] Last Admin: 10/18/17 21:11 Dose: Not Given Sodium Chloride (Normal Saline) 1,000 mls @ 100 mls/hr IV ASDIRECTED [facility] Last Admin: 10/19/17 03:18 Dose: 100 mls/hr Levothyroxine Sodium (Levothyroxine) 112 mcg PO DAILY@0600 [facility] Last Admin: 10/19/17 05:55 Dose: 112 mcg Multivitamins/Minerals/Vitamin C (Tab-A-Latoya) 1 tab PO DAILY [facility] Last Admin: 10/19/17 08:23 Dose: 1 tab Non-Formulary Medication (Acetaminophen [Tylenol]) 650 mg PO Q4HR [facility] Non-Formulary Medication (Estradiol [Estrace 0.01% Vaginal Crm]) 1 applic VAG ASDIRECTED [facility] Non-Formulary Medication (Nitrofurantoin Monohyd/M-Cryst [Macrobid 100 Mg Capsule]) 100 mg PO BID [facility] Non-Formulary Medication (Estradiol [Estrace 0.01% Vaginal Crm]) 1 applic VAG ASDIRECTED [facility] Non-Formulary Medication (Nitrofurantoin Monohyd/M-Cryst [Macrobid 100 Mg Capsule]) 100 mg PO BID [facility] Cholecalciferiol Vitamin D3 2000 Iu Tab Own Med 0 each PO DAILY [facility] Last Admin: 10/19/17 08:22 Dose: 1 each Rosuvastatin 20mg (Tab Own Med) 0 each PO DAILY [facility] Last Admin: 10/19/17 08:22 Dose: 1 each Xarelto 20mg Tab (Own Med) 0 each PO DAILY@1200 [facility] Last Admin: 10/19/17 12:43 Dose: 1 each Rantidine 150mg Tab (Own Med) 0 each PO BEDTIME [facility] Last Admin: 10/18/17 21:32 Dose: 1 each Rivaroxaban (Xarelto) 20 mg PO WITHDINNER [facility] Last Admin: 10/18/17 18:45 Dose: Not Given - Exam General: Alert, Cooperative. No: Oriented Neck: Supple Lungs: Clear to Auscultation, Normal Respiratory Effort Cardiovascular: Regular Rate, No Murmurs, Irregular Rhythm Extremities: No Pedal Edema Psy/Mental Status: Alert, Labile Mood, Anxious - Problem List & Annotations (1) UTI (urinary tract infection) SNOMED Code(s): 70445613 Code(s): N39.0 - URINARY TRACT INFECTION, SITE NOT SPECIFIED Status: Acute Current Visit: Yes (2) Confusion SNOMED Code(s): 993540014 Code(s): R41.0 - DISORIENTATION, UNSPECIFIED Status: Acute Current Visit : Yes (3) Dementia SNOMED Code(s): 34539112 Code(s): F03.90 - UNSPECIFIED DEMENTIA WITHOUT BEHAVIORAL DISTURBANCE Status: Acute Current Visit: Yes (4) Fall SNOMED Code(s): 9394672, 236272376 Code(s): W19.XXXA - UNSPECIFIED FALL, INITIAL ENCOUNTER Status: Acute Current Visit: Yes (5) Palliative care status SNOMED Code(s): 466611473 Code(s): Z51.5 - ENCOUNTER FOR PALLIATIVE CARE Status: Acute Current Visit: Yes (6) Chronic renal failure, stage 3 (moderate) SNOMED Code(s): 61315886, 793903103 Code(s): N18.3 - CHRONIC KIDNEY DISEASE, STAGE 3 (MODERATE) Status: Acute Current Visit: Yes (7) Anxiety and depression SNOMED Code(s): 68813819 Code(s): F41.9 - ANXIETY DISORDER, UNSPECIFIED; F32.9 - MAJOR DEPRESSIVE DISORDER, SINGLE EPISODE, UNSPECIFIED Status: Acute Current Visit: Yes - Problem List Review Problem List Initiated/Reviewed/Updated: Yes - My Orders Last 24 Hours: My Active Orders 10/19/17 09:28 Patient Status [ADT] Routine 10/19/17 09:29 Consult to Occupational Therapy [OT Evaluation and Treatment] [CONS] Routine Consult to Physical Therapy [PT Evaluation and Treatment] [CONS] Routine Sodium Chloride 0.9% [Saline Flush] 10 ml FLUSH ASDIRECTED PRN Saline Lock Insert [OM.PC] Routine 10/19/17 09:30 CXR [Chest 2V] [CR] Routine 10/19/17 21:00 Famotidine [Pepcid] 20 mg PO BEDTIME 10/20/17 06:00 Consult to Cuff Maker [CONS] Routine Respiratory Care Assess and Treatment [CONS] Routine 10/20/17 08:32 LORazepam [Ativan] 0.25 mg PO Q6H PRN 10/20/17 09:00 Azithromycin [Zithromax] 250 mg PO DAILY Citalopram [Celexa] 10 mg PO DAILY Lisinopril [Prinivil] 10 mg PO DAILY - Plan Plan:: 1. I believe she is probably going through assess her withdrawal. I talk to her daughter Leah is in agreement restart citalopram. Told her daughter that this is not good time to go through withdrawals or stopping the medicine because she is going through such a great transition moving. 2. PT/OT eval. 3. Wait for chest x-ray reading. 4. Evaluate oxygen for desaturation per respiratory.
[2017-10-20] MEDS ORDERED: Azithromycin 250 MG Tab PO SCH (09:00)
[2017-10-20] MEDS: Pantoprazole 40 MG Tab.CR PO SCH (09:01)
[2017-10-20] MEDS: Docusate Sodium 100 MG Cap PO SCH ×2 (09:01→20:00)
[2017-10-20] MEDS: Rosuvastatin 10 MG Tab PO SCH (09:02)
[2017-10-20] MEDS: Cholecalciferol (Vitamin D3) 1,000 Unit Tab PO SCH (09:02)
[2017-10-20] MEDS: Multivitamin Tab PO SCH (09:02)
[2017-10-20] MEDS: LORazepam 0.5 MG Tab PO PRN ×2 (09:24→23:30)
[2017-10-20] MEDS: Lisinopril 10 MG Tab PO SCH (09:26)
[2017-10-20] MEDS: Citalopram 10 MG Tab PO SCH (09:26)
--- NOTE | 2017-10-20 10:04 | ER ---
DATE SEEN: 10/18/2017 TIME SEEN: The patient was seen at 1215 hours. HISTORY OF PRESENT ILLNESS: Mayelin is an 82-year-old woman who has been moved from different residence to be closer to family. She lives alone. She was spoken to by her daughter who lives in the community last night and she was seen last night and noted to be well. This morning, the patient's daughter called, she did not answer and consequently came over to the house and found the patient on the floor and noted she was confused. On 10/07/2017, she had a left upper lobe nodule biopsy. There was insufficient material on the fine- needle biopsy to make a diagnosis. The patient recently lived to [place], [place], and has now moved [facility] within the last two weeks. She had a new CVA two weeks ago, and was treated. She is now getting outpatient PT and OT. She has also documented past cardiomegaly, left upper lobe spiculated nodule, lightheadedness, hiatus hernia, bradycardia treated with pacemaker, stable, taking rivaroxaban as anticoagulant. Has mild chronic kidney disease with GFR of 46. Recently treated for urinary tract infection with nitrofurantoin, (has GERD). Treated hypothyroidism and has bladder spasm treated with oxybutynin. MEDICATIONS: 1. For dyslipidemia, lovastatin 20 mg daily. 2. Levothyroxine 112 mcg daily. 3. Colace 100 mg b.i.d. 4. Vitamin D 2000 units daily. 5. Protonix 40 mg daily. 6. Melatonin 3 mg daily. 7. Estradiol vaginal cream to help with the urinary incontinence issues, apply daily. 8. Zantac 150 mg daily (GERD). 9. Macrobid 100 mg b.i.d. (urinary tract infection). 10.Multivitamin daily. 11.Rivaroxaban 20 mg daily. PHYSICAL EXAMINATION: GENERAL: The patient is oriented to self and hospital, but does not know the date. She thinks it is September and also thinks it is Friday (Friday) and she does not know what year it is. She said Yudelka and Ehsan, her parents were just here (it is her daughter and son-in-law). She notes that the name of her daughter who lives in [place] is Amanda. I just spent 10 minutes on the phone talking with Amanda. On the initial arrival, she was more confused and not as interactive. After she had been here for an hour, she is more interactive and less confused. The history I obtained just above with her was after she had been here for approximately an hour. HEENT: PERRLA intact. Eyegrounds normal. Previous cataract surgery noted. TMs negative. Pharynx without abnormality. She has dentures. NECK: No bruits. S2 is greater than S1. HEART: S1, S2. No irregularity in rhythm. No murmur. No chest wall tenderness. No ecchymosis. No chest pain. ABDOMEN: Soft, nontender. No guarding. No abdominal discomfort. Bowel sounds present. No CVA percussion tenderness. MUSCULOSKELETAL: No spinous process tenderness of cervical, thoracic, and lumbar spine No rib tenderness. No tenderness in lower extremities or ecchymosis or abrasions or trauma to lower extremities. Range of motion of lower extremities is appropriate. Active resistance. Strength is good with dorsiflexion of her feet and plantar flexion. Deep tendon reflexes present. Hypoactive upper and lower extremities, but present. NEUROLOGICAL: Cranial nerves 2 through 12 intact but slight decreased hearing. Fund of knowledge, the patient did not know the president. She knew the capital of [place]. The capital of [place] was [facility]). She states she is living in a [facility] presently. She knew her daughter's name in [place], but not the daughter who was just here in the hospital. When it comes to adages, at certain times she interpreted that she will be millionaire and a bird in the pierre was worth more than the bird in the hand to the patient and her interpretations of these adages are poor. Recent memory is poor, and distant memory is decreased. Also fund of knowledge is fair. Gait was not tested as she was eating when I came back to talk to her. Tentative plans are, one is, I am concerned about her walking and falling. She had a CT of the head and neck that were negative. LABORATORY DATA: White count 11,500, PMNs 84, lymphocytes 7, hemoglobin 15.2. PTT is 27.2 (not elevated) and a complete metabolic panel is relatively normal except for mild decrease in her GFR of 39%. BUN is 23, creatinine 1.3, sodium 140, potassium 4.0, chloride 103, bicarb 25, troponin 0.17, and BNP 243. EKG, anterior infarct, old, with poor progression of R waves across the anterior precordium. No ST elevation or T-wave abnormalities. ASSESSMENT: 1. Falling. 2. Early dementia. 3. At risk of being home alone, needs to be in a [facility] environment. She is already in semi-assisted living. 4. Status post cerebrovascular accident two weeks ago with residual decreased mentation. Logic, fund of knowledge and memory is decrease of recent memory. 5. No evidence for cervical spine injury. 6. Concussion, secondary to fall. 7. Old anterior myocardial infarction. 8. GERD. 9. Hypothyroidism, treated. 10.Anticoagulants, Xarelto secondary to cerebrovascular accident two weeks ago. 11.Pacemaker placement for bradycardia. 12.Large hiatus hernia. 13.Status post two weeks ago, left upper lobe spiculated nodule biopsied without sufficient material to make a diagnosis. 14.Cardiomegaly. 15.No evidence for rhabdomyolysis. CPK is 66. 16.Troponin is negative. She has an old anterior myocardial infarction. Because of patient's confusion, she is two weeks status post CVA. She is at risk of living at home on her own, needs to be placed in a [facility]. The patient will be admitted for further observation and perhaps later [facility] placement in next 24-48 hours or will go home taken care by family until [facility] can be arranged. /[id number] JONY/MARLEY
--- NOTE | 2017-10-20 10:04 | ER ---
DATE SEEN: 10/18/2017 The patient will be admitted, bed is made available. No longer on diversion and hopefully arrangements made, so she can find a half-way that will be more satisfactory than the home that she is living in (apartment). I have spoken to her daughter, Dr. Krause and also the other daughter. The patient has been admitted for observation. /[id number] JONY/MARLEY
--- NOTE | 2017-10-20 11:03 | CR ---
INDICATION: Trouble breathing. CHEST: A single portable AP upright view of the chest was obtained 10/18/2017 - no comparisons. The heart is enlarged with bipolar pacemaker leads in place. The aorta is calcified in the arch an descending portion. Overlying EKG leads are noted. A definite active infiltrate or effusion was not identified. A large fixed hiatal hernia is suggested. Lungs appear to be somewhat hyperaerated. IMPRESSION: 1. ASHD with cardiomegaly. 2. Large fixed hiatal hernia. 3. Probable COPD- correlate clinically. 4. Bipolar pacemaker leads. MTDD
--- NOTE | 2017-10-20 11:10 | CR ---
INDICATION: Weakness and confusion. CHEST: PA and lateral views of the chest were obtained 10/19/2017 at 1258 hours and revealed a large fixed hiatal hernia with air fluid levels. The heart is enlarged. The aorta is tortuous and calcified in the arch and descending portion. Diminished bone density suggests osteoporosis. Prominent AP diameter, flattening of diaphragm leaves, and hyperaeration suggest COPD. A definite active infiltrate or effusion was not identified. Somewhat heavy markings are noted, suggesting a mild degree of pulmonary fibrosis. IMPRESSION: 1. Large fixed hiatal hernia with air fluid levels. 2. COPD. 3. ASHD with cardiomegaly. 4. Bipolar pacemaker leads in place. 5. Mild pulmonary fibrosis. 6. Osteoporosis. MTDD
[2017-10-20] MEDS: Rivaroxaban 10 MG Tab PO SCH (12:09)
[2017-10-20] MEDS: cefTRIAXone 1,000 MG VIAL IV SCH (16:58)
[2017-10-20] MEDS: Sodium Chloride 0.9% 10 ML Syringe FLUSH PRN ×2 (16:58→17:04)
[2017-10-20] MEDS: Famotidine 20 MG Tab PO SCH (20:00)
[2017-10-21] MEDS: Levothyroxine 112 MCG Tab PO SCH (06:31)
[2017-10-21] MEDS: Pantoprazole 40 MG Tab.CR PO SCH (07:40)
[2017-10-21] MEDS: Citalopram 10 MG Tab PO SCH (08:45)
[2017-10-21] MEDS: Docusate Sodium 100 MG Cap PO SCH (08:45)
[2017-10-21] MEDS: Lisinopril 10 MG Tab PO SCH (08:45)
[2017-10-21] MEDS: Rosuvastatin 10 MG Tab PO SCH (08:45)
[2017-10-21] MEDS: Multivitamin Tab PO SCH (08:46)
[2017-10-21] MEDS: Cholecalciferol (Vitamin D3) 1,000 Unit Tab PO SCH (08:46)
--- NOTE | 2017-10-21 08:55 | PCM.PN ---
- General Info Date of Service: 10/21/17 Admission Dx/Problem (Free Text): Patient without complaints. She denies any chest pain, shortness breath, dysuria. - Patient Data Vitals - Most Recent: Last Vital Signs Temp 98.2 F 10/21/17 07:30 Pulse 66 10/21/17 07:30 Resp 18 10/21/17 07:30 BP 162/92 H 10/21/17 08:45 Pulse Ox 94 L 10/21/17 07:30 Weight - Most Recent: 160 lb 14.4 oz Luis Results Last 24 Hours: Microbiology 10/18/17 14:40 Urine Culture - Final Urine, Catheterized NO GROWTH AFTER 2 DAYS Med Orders - Current: Current Medications Acetaminophen (Tylenol) 650 mg PO Q4H PRN PRN Reason: Pain (Mild 1-3)/fever Ceftriaxone Sodium (Rocephin) 1,000 mg IV Q24H [facility] Last Admin: 10/20/17 16:58 Dose: 1,000 mg Cholecalciferol (Vitamin D3) 2,000 units PO DAILY [facility] Last Admin: 10/21/17 08:46 Dose: 2,000 units Citalopram Hydrobromide (Celexa) 10 mg PO DAILY [facility] Last Admin: 10/21/17 08:45 Dose: 10 mg Docusate Sodium (Colace) 100 mg PO BID [facility] Last Admin: 10/21/17 08:45 Dose: 100 mg Famotidine (Pepcid) 20 mg PO BEDTIME [facility] Last Admin: 10/20/17 20:00 Dose: 20 mg Ibuprofen (Motrin) 400 mg PO Q6H PRN PRN Reason: Pain (mild 1-3) Last Admin: 10/21/17 00:40 Dose: 400 mg Levothyroxine Sodium (Levothyroxine) 112 mcg PO DAILY@0600 [facility] Last Admin: 10/21/17 06:31 Dose: 112 mcg Lisinopril (Prinivil) 10 mg PO DAILY [facility] Last Admin: 10/21/17 08:45 Dose: 10 mg Lorazepam (Ativan) 0.25 mg PO Q6H PRN PRN Reason: Anxiety Last Admin: 10/20/17 23:30 Dose: 0.25 mg Multivitamins/Minerals/Vitamin C (Tab-A-Latoya) 1 tab PO DAILY [facility] Last Admin: 10/21/17 08:46 Dose: 1 tab Pantoprazole Sodium (Protonix) 40 mg PO ACBREAKFAST [facility] Last Admin: 10/21/17 07:40 Dose: 40 mg Rivaroxaban (Xarelto) 20 mg PO DAILY@1200 [facility] Last Admin: 10/20/17 12:09 Dose: 20 mg Rosuvastatin Calcium (Crestor) 20 mg PO DAILY [facility] Last Admin: 10/21/17 08:45 Dose: 20 mg Sodium Chloride (Saline Flush) 10 ml FLUSH ASDIRECTED PRN PRN Reason: Keep Vein Open Last Admin: 10/20/17 17:04 Dose: 10 ml Discontinued Medications Azithromycin (Zithromax) 500 mg PO ONETIME ONE Stop: 10/19/17 16:09 Last Admin: 10/19/17 17:12 Dose: 500 mg Azithromycin (Zithromax) 250 mg PO DAILY [facility] Last Admin: 10/20/17 09:02 Dose: 250 mg Ceftriaxone Sodium (Rocephin) 1,000 mg IVPUSH Q24H [facility] Last Admin: 10/18/17 21:11 Dose: Not Given Docusate Sodium (Colace) 100 mg PO BID PRN PRN Reason: Constipation Docusate Sodium (Colace) 100 mg PO BID [facility] Last Admin: 10/19/17 08:21 Dose: 100 mg Famotidine (Pepcid) 20 mg PO DAILY [facility] Ceftriaxone Sodium 1,000 mg/ (Sodium Chloride) 50 mls @ 100 mls/hr IV Q24H [facility] Last Admin: 10/18/17 21:11 Dose: Not Given Sodium Chloride (Normal Saline) 1,000 mls @ 100 mls/hr IV ASDIRECTED [facility] Last Admin: 10/19/17 03:18 Dose: 100 mls/hr Levothyroxine Sodium (Levothyroxine) 112 mcg PO DAILY@0600 [facility] Last Admin: 10/19/17 05:55 Dose: 112 mcg Multivitamins/Minerals/Vitamin C (Tab-A-Latoya) 1 tab PO DAILY [facility] Last Admin: 10/19/17 08:23 Dose: 1 tab Non-Formulary Medication (Acetaminophen [Tylenol]) 650 mg PO Q4HR [facility] Non-Formulary Medication (Estradiol [Estrace 0.01% Vaginal Crm]) 1 applic VAG ASDIRECTED [facility] Non-Formulary Medication (Nitrofurantoin Monohyd/M-Cryst [Macrobid 100 Mg Capsule]) 100 mg PO BID [facility] Non-Formulary Medication (Estradiol [Estrace 0.01% Vaginal Crm]) 1 applic VAG ASDIRECTED [facility] Non-Formulary Medication (Nitrofurantoin Monohyd/M-Cryst [Macrobid 100 Mg Capsule]) 100 mg PO BID [facility] Ondansetron HCl (Zofran Odt) 4 mg PO Q6H PRN PRN Reason: nausea, able to take PO Cholecalciferiol Vitamin D3 2000 Iu Tab Own Med 0 each PO DAILY [facility] Last Admin: 10/19/17 08:22 Dose: 1 each Rosuvastatin 20mg (Tab Own Med) 0 each PO DAILY [facility] Last Admin: 10/19/17 08:22 Dose: 1 each Xarelto 20mg Tab (Own Med) 0 each PO DAILY@1200 [facility] Last Admin: 10/19/17 12:43 Dose: 1 each Rantidine 150mg Tab (Own Med) 0 each PO BEDTIME [facility] Last Admin: 10/18/17 21:32 Dose: 1 each Rivaroxaban (Xarelto) 20 mg PO WITHDINNER [facility] Last Admin: 10/18/17 18:45 Dose: Not Given - Exam General: Alert, Cooperative, No Acute Distress Lungs: Normal Respiratory Effort - Problem List & Annotations (1) UTI (urinary tract infection) SNOMED Code(s): 04469221 Code(s): N39.0 - URINARY TRACT INFECTION, SITE NOT SPECIFIED Status: Acute Current Visit: Yes (2) Confusion SNOMED Code(s): 740128871 Code(s): R41.0 - DISORIENTATION, UNSPECIFIED Status: Acute Current Visit : Yes (3) Dementia SNOMED Code(s): 46952397 Code(s): F03.90 - UNSPECIFIED DEMENTIA WITHOUT BEHAVIORAL DISTURBANCE Status: Acute Current Visit: Yes (4) Fall SNOMED Code(s): 4520282, 933208222 Code(s): W19.XXXA - UNSPECIFIED FALL, INITIAL ENCOUNTER Status: Acute Current Visit: Yes (5) Palliative care status SNOMED Code(s): 164826322 Code(s): Z51.5 - ENCOUNTER FOR PALLIATIVE CARE Status: Acute Current Visit: Yes (6) Chronic renal failure, stage 3 (moderate) SNOMED Code(s): 41399979, 566726780 Code(s): N18.3 - CHRONIC KIDNEY DISEASE, STAGE 3 (MODERATE) Status: Acute Current Visit: Yes (7) Anxiety and depression SNOMED Code(s): 46133414 Code(s): F41.9 - ANXIETY DISORDER, UNSPECIFIED; F32.9 - MAJOR DEPRESSIVE DISORDER, SINGLE EPISODE, UNSPECIFIED Status: Acute Current Visit: Yes - Problem List Review Problem List Initiated/Reviewed/Updated: Yes - My Orders Last 24 Hours: My Active Orders 10/20/17 08:32 LORazepam [Ativan] 0.25 mg PO Q6H PRN 10/20/17 09:00 Citalopram [Celexa] 10 mg PO DAILY Lisinopril [Prinivil] 10 mg PO DAILY - Assessment Assessment:: Discharge to home on Macrobid. She had a urine culture in the clinic couple days before she came in as Escherichia coli sensitive to Macrobid. Resistant to a lot of other indications. Home health. Continue 10 mg citalopram. - Plan Plan:: Discharge to home on Macrobid. She had a culture that in the clinic 3 days before she came in and the sensitivity showed Macrobid and very resistant of antibiotics. Earle worked also. Home health. Continue citalopram outpatient.
--- NOTE | 2017-10-21 09:02 | PCM.DCSUM1 ---
Discharge Summary - Hospital Course Free Text/Narrative:: Hospital course-patient was admitted and placed on Rocephin IV. She had a urinary culture 2-3 days prior to being put in the hospital which showed Escherichia coli sensitive to Macrobid and Rocephin. She had not been given any before she came in here. Urine was done. White count was okay. Patient was confused and that she was here she improved. She was removed from observation to inpatient. The second day here she was feeling agitated and shaky inside and weepy. She had her [place] stopped 1 week prior to being seen here. So I restarted. Again little Ativan and that helped. Patient became more alert although she still does seem to be a little confused. We'll send her home on Macrobid at [facility]. Have her come back in 10 days with a urine did consider prophylaxing for future UTIs. I spent greater than 30 minutes discharge today talking to 2 family members and answering questions was site seen the patient. Brief History: This is an 82-year-old female patient this recently moved the area to be closer her daughter. She is had a stroke and some dementia. She is living in an apartment and her daughter went over today and found her on the floor naked calling out her sister. She was not able to get up. His had a CVA in the past. She was taken by EMS the ER and had a CT that was negative reported by the ER doc to me. She has had UTIs and has had the urine has nitrite positive and white cells. The urologist has seen her and felt her urine probably is not clean all the time and not to treat a possible because of resistant strains. The patient states she does not a dysuria or pyuria or hematuria. The daughter states she's had some incontinence. Which is new. The daughter states she's been very confused. No fevers chills or back pain. No coughing or wheezing or diarrhea. - Discharge Data Discharge Date: 10/21/17 Discharge Disposition: Home, W Home Health Agency 06 Condition: Good - Discharge Diagnosis/Problem(s) (1) UTI (urinary tract infection) SNOMED Code(s): 38821249 ICD Code: N39.0 - URINARY TRACT INFECTION, SITE NOT SPECIFIED Status: Acute Current Visit: Yes (2) Confusion SNOMED Code(s): 955474548 ICD Code: R41.0 - DISORIENTATION, UNSPECIFIED Status: Acute Current Visit : Yes (3) Dementia SNOMED Code(s): 05261700 ICD Code: F03.90 - UNSPECIFIED DEMENTIA WITHOUT BEHAVIORAL DISTURBANCE Status: Acute Current Visit: Yes (4) Fall SNOMED Code(s): 6192962, 014166521 ICD Code: W19.XXXA - UNSPECIFIED FALL, INITIAL ENCOUNTER Status: Acute Current Visit: Yes (5) Palliative care status SNOMED Code(s): 094956231 ICD Code: Z51.5 - ENCOUNTER FOR PALLIATIVE CARE Status: Acute Current Visit: Yes (6) Chronic renal failure, stage 3 (moderate) SNOMED Code(s): 24800733, 992425231 ICD Code: N18.3 - CHRONIC KIDNEY DISEASE, STAGE 3 (MODERATE) Status: Acute Current Visit: Yes (7) Anxiety and depression SNOMED Code(s): 93318500 ICD Code: F41.9 - ANXIETY DISORDER, UNSPECIFIED; F32.9 - MAJOR DEPRESSIVE DISORDER, SINGLE EPISODE, UNSPECIFIED Status: Acute Current Visit: Yes - Patient Summary/Data Consults: Consultations 10/19/17 09:29 Consult to Occupational Therapy [OT Evaluation and Treatment] [CONS] Routine Please Evaluate and Treat. OT Reason for Consult: Strengthening This query below is only for informational purposes and is not editable. Admission Diagnosis/Problem: Falls Consult to Physical Therapy [PT Evaluation and Treatment] [CONS] Routine Please Evaluate and Treat. PT Reason for Consult: Strengthening This query below is only for informational purposes and is not editable. Admission Diagnosis/Problem: Falls 10/20/17 06:00 Consult to Correctional Counselor/Case Manager [CONS] Routine Comment: Physician Instructions: check with family if more services needed Reason for Consult: daughter is a social group worker Person Notified: Tabby Date Notified: 10/19/17 Time Notified: 16:53 Respiratory Care Assess and Treatment [CONS] Routine Comment: Physician Instructions: assess for desaturation during ambulation - Patient Instructions Diet: Regular Diet as Tolerated Activity: As Tolerated Driving: Do Not Drive Showering/Bathing: May Shower Notify Provider of: Fever, Nausea and/or Vomiting Other/Special Instructions: 1. Recheck in 10 days with a UA with Dr. Zaragoza. 2. Home health for home safety, med teaching, home cares, disease teaching. - Discharge Plan Prescriptions/Med Rec: Citalopram Hydrobromide [Celexa] 10 mg PO DAILY #30 tablet Lisinopril [Prinivil] 10 mg PO DAILY #90 tablet Home Medications: Home Meds Acetaminophen [Tylenol] 650 mg PO Q4HR 10/18/17 [History] Cholecalciferol (Vitamin D3) [Vitamin D3] 2,000 unit PO DAILY 10/18/17 [History] Docusate Sodium [Colace] 100 mg PO BID 10/18/17 [History] Estradiol [Estrace 0.01% Vaginal Crm] 1 applic VAG ASDIRECTED 10/18/17 [History] Levothyroxine 112 mcg PO ACBREAKFAST 10/18/17 [History] Lisinopril [Prinivil] 5 mg PO BID 10/18/17 [History] Melatonin 3 mg PO BEDTIME 10/18/17 [History] Multivitamin [Multi-Vitamin Daily] 1 tab PO DAILY 10/18/17 [History] Nitrofurantoin Monohyd/M-Cryst [Macrobid 100 mg Capsule] 100 mg PO BID 10/18/17 [History] Oxybutynin Chloride [Ditropan Xl] 10 mg PO BEDTIME 10/18/17 [History] Pantoprazole Sodium [Protonix] 40 mg PO ACBREAKFAST 10/18/17 [History] Ranitidine HCl [Zantac] 150 mg PO BEDTIME 10/18/17 [History] Rivaroxaban [Xarelto] 20 mg PO 1200 10/18/17 [History] Rosuvastatin [Crestor] 20 mg PO DAILY 10/18/17 [History] Citalopram Hydrobromide [Celexa] 10 mg PO DAILY #30 tablet 10/21/17 [Rx] Lisinopril [Prinivil] 10 mg PO DAILY #90 tablet 10/21/17 [Rx] Patient Handouts: Acute Urinary Retention, Female, [id number], Fall Prevention in Hospitals, Adult, Venous Thromboembolism Prevention Forms: ED Department Discharge Referrals: Navi Zaragoza MD [Primary Care Provider] - - Discharge Summary/Plan Comment DC Time >30 min.: Yes - Patient Data Vitals - Most Recent: Last Vital Signs Temp 98.2 F 10/21/17 07:30 Pulse 66 10/21/17 07:30 Resp 18 10/21/17 07:30 BP 162/92 H 10/21/17 08:45 Pulse Ox 94 L 10/21/17 07:30 Weight - Most Recent: 160 lb 14.4 oz CRISTINA Results - Last 24 hrs: Microbiology 10/18/17 14:40 Urine Culture - Final Urine, Catheterized NO GROWTH AFTER 2 DAYS Med Orders - Current: Current Medications Acetaminophen (Tylenol) 650 mg PO Q4H PRN PRN Reason: Pain (Mild 1-3)/fever Ceftriaxone Sodium (Rocephin) 1,000 mg IV Q24H [facility] Last Admin: 10/20/17 16:58 Dose: 1,000 mg Cholecalciferol (Vitamin D3) 2,000 units PO DAILY [facility] Last Admin: 10/21/17 08:46 Dose: 2,000 units Citalopram Hydrobromide (Celexa) 10 mg PO DAILY [facility] Last Admin: 10/21/17 08:45 Dose: 10 mg Docusate Sodium (Colace) 100 mg PO BID [facility] Last Admin: 10/21/17 08:45 Dose: 100 mg Famotidine (Pepcid) 20 mg PO BEDTIME [facility] Last Admin: 10/20/17 20:00 Dose: 20 mg Ibuprofen (Motrin) 400 mg PO Q6H PRN PRN Reason: Pain (mild 1-3) Last Admin: 10/21/17 00:40 Dose: 400 mg Levothyroxine Sodium (Levothyroxine) 112 mcg PO DAILY@0600 [facility] Last Admin: 10/21/17 06:31 Dose: 112 mcg Lisinopril (Prinivil) 10 mg PO DAILY [facility] Last Admin: 10/21/17 08:45 Dose: 10 mg Lorazepam (Ativan) 0.25 mg PO Q6H PRN PRN Reason: Anxiety Last Admin: 10/20/17 23:30 Dose: 0.25 mg Multivitamins/Minerals/Vitamin C (Tab-A-Latoya) 1 tab PO DAILY [facility] Last Admin: 10/21/17 08:46 Dose: 1 tab Pantoprazole Sodium (Protonix) 40 mg PO ACBREAKFAST [facility] Last Admin: 10/21/17 07:40 Dose: 40 mg Rivaroxaban (Xarelto) 20 mg PO DAILY@1200 [facility] Last Admin: 10/20/17 12:09 Dose: 20 mg Rosuvastatin Calcium (Crestor) 20 mg PO DAILY [facility] Last Admin: 10/21/17 08:45 Dose: 20 mg Sodium Chloride (Saline Flush) 10 ml FLUSH ASDIRECTED PRN PRN Reason: Keep Vein Open Last Admin: 10/20/17 17:04 Dose: 10 ml Discontinued Medications Azithromycin (Zithromax) 500 mg PO ONETIME ONE Stop: 10/19/17 16:09 Last Admin: 10/19/17 17:12 Dose: 500 mg Azithromycin (Zithromax) 250 mg PO DAILY [facility] Last Admin: 10/20/17 09:02 Dose: 250 mg Ceftriaxone Sodium (Rocephin) 1,000 mg IVPUSH Q24H [facility] Last Admin: 10/18/17 21:11 Dose: Not Given Docusate Sodium (Colace) 100 mg PO BID PRN PRN Reason: Constipation Docusate Sodium (Colace) 100 mg PO BID [facility] Last Admin: 10/19/17 08:21 Dose: 100 mg Famotidine (Pepcid) 20 mg PO DAILY [facility] Ceftriaxone Sodium 1,000 mg/ (Sodium Chloride) 50 mls @ 100 mls/hr IV Q24H [facility] Last Admin: 10/18/17 21:11 Dose: Not Given Sodium Chloride (Normal Saline) 1,000 mls @ 100 mls/hr IV ASDIRECTED [facility] Last Admin: 10/19/17 03:18 Dose: 100 mls/hr Levothyroxine Sodium (Levothyroxine) 112 mcg PO DAILY@0600 [facility] Last Admin: 10/19/17 05:55 Dose: 112 mcg Multivitamins/Minerals/Vitamin C (Tab-A-Latoya) 1 tab PO DAILY [facility] Last Admin: 10/19/17 08:23 Dose: 1 tab Non-Formulary Medication (Acetaminophen [Tylenol]) 650 mg PO Q4HR [facility] Non-Formulary Medication (Estradiol [Estrace 0.01% Vaginal Crm]) 1 applic VAG ASDIRECTED [facility] Non-Formulary Medication (Nitrofurantoin Monohyd/M-Cryst [Macrobid 100 Mg Capsule]) 100 mg PO BID [facility] Non-Formulary Medication (Estradiol [Estrace 0.01% Vaginal Crm]) 1 applic VAG ASDIRECTED [facility] Non-Formulary Medication (Nitrofurantoin Monohyd/M-Cryst [Macrobid 100 Mg Capsule]) 100 mg PO BID [facility] Ondansetron HCl (Zofran Odt) 4 mg PO Q6H PRN PRN Reason: nausea, able to take PO Cholecalciferiol Vitamin D3 2000 Iu Tab Own Med 0 each PO DAILY [facility] Last Admin: 10/19/17 08:22 Dose: 1 each Rosuvastatin 20mg (Tab Own Med) 0 each PO DAILY [facility] Last Admin: 10/19/17 08:22 Dose: 1 each Xarelto 20mg Tab (Own Med) 0 each PO DAILY@1200 [facility] Last Admin: 10/19/17 12:43 Dose: 1 each Rantidine 150mg Tab (Own Med) 0 each PO BEDTIME [facility] Last Admin: 10/18/17 21:32 Dose: 1 each Rivaroxaban (Xarelto) 20 mg PO WITHDINNER [facility] Last Admin: 10/18/17 18:45 Dose: Not Given
[2017-10-21] MEDS: Rivaroxaban 10 MG Tab PO SCH (12:57)
== END 2017-10-21 14:00 | disposition home health service (06) | DRG 690 ==
LOC: FB.ED 11:58 → FB.MS 14:57 → UNDOADMOB 14:57 → FB.MS 14:57 → FB.ED 15:30 → FB.MS 10-19 09:28 → OBSVTOIN 10-19 09:28
PROVIDERS: ADMIT Emergency Medicine; ATTEND Family Medicine
DX: N39.0 Urinary tract infection, site not specified (principal); F19.939 Other psychoactive substance use, unspecified with withdrawal, unspecified; B96.20 Unspecified Escherichia coli [E. coli] as the cause of diseases classified elsewhere; Z51.5 Encounter for palliative care; R41.0 Disorientation, unspecified; F03.90 Unspecified dementia, unspecified severity, without behavioral disturbance, psychotic disturbance, mood disturbance, and anxiety; N18.3 Chronic kidney disease, stage 3 (moderate); E03.9 Hypothyroidism, unspecified; Z86.73 Personal history of transient ischemic attack (TIA), and cerebral infarction without residual deficits; Z87.891 Personal history of nicotine dependence; W19.XXXA Unspecified fall, initial encounter; Y92.039 Unspecified place in apartment as the place of occurrence of the external cause; F41.9 Anxiety disorder, unspecified; F32.9 Major depressive disorder, single episode, unspecified; I25.2 Old myocardial infarction; E78.5 Hyperlipidemia, unspecified; K21.9 Gastro-esophageal reflux disease without esophagitis; Z85.850 Personal history of malignant neoplasm of thyroid; N32.81 Overactive bladder; H91.90 Unspecified hearing loss, unspecified ear; H54.7 Unspecified visual loss; Z87.440 Personal history of urinary (tract) infections; Z79.01 Long term (current) use of anticoagulants; R45.1 Restlessness and agitation
CPT/HCPCS: 36415; 51701; 70450; 71045; 71046; 72125; 80048; 80053; 81001; 82550; 83880; 84484; 85025; 85610; 85730; 87086; 93005; 94760; 97165-GO; 99285; A9270-GY; J0696; J7030; J7050

== ENCOUNTER 2017-10-23 17:17 | Emergency (ER) | payer MEDICARE, BC ==
--- NOTE | 2017-10-23 18:03 | EDM.PDOC ---
ED HPI GENERAL MEDICAL PROBLEM - General Chief Complaint: General Stated Complaint: FALL Time Seen by Provider: 10/23/17 17:20 Source of Information: Reports: Patient, Family History Limitations: Reports: No Limitations - History of Present Illness INITIAL COMMENTS - FREE TEXT/NARRATIVE: April returns to PSYCHIATRIC ED following a fall at apartment today while returning from the bathroom. There was no LOC or apparent injury. She complains of feeling weak and tired. There is a remote hx of L hemispheral CVA 2 mos ago, hospitalized at [facility], and rehabilitation including speech and physical therapy. She is currently receiving outpt therapy at her apartment, but has ongong difficulty with ambulation. She does use a walker. - Related Data Allergies Allergy/AdvReac Type Severity Reaction Status Date / Time No Known Allergies Allergy Verified 10/23/17 17:34 Home Meds: Home Meds Acetaminophen [Tylenol] 650 mg PO Q4HR 10/18/17 [History] Cholecalciferol (Vitamin D3) [Vitamin D3] 2,000 unit PO DAILY 10/18/17 [History] Docusate Sodium [Colace] 100 mg PO BID 10/18/17 [History] Estradiol [Estrace 0.01% Vaginal Crm] 1 applic VAG ASDIRECTED 10/18/17 [History] Levothyroxine 112 mcg PO ACBREAKFAST 10/18/17 [History] Lisinopril [Prinivil] 5 mg PO BID 10/18/17 [History] Melatonin 3 mg PO BEDTIME 10/18/17 [History] Multivitamin [Multi-Vitamin Daily] 1 tab PO DAILY 10/18/17 [History] Nitrofurantoin Monohyd/M-Cryst [Macrobid 100 mg Capsule] 100 mg PO BID 10/18/17 [History] Oxybutynin Chloride [Ditropan Xl] 10 mg PO BEDTIME 10/18/17 [History] Pantoprazole Sodium [Protonix] 40 mg PO ACBREAKFAST 10/18/17 [History] Ranitidine HCl [Zantac] 150 mg PO BEDTIME 10/18/17 [History] Rivaroxaban [Xarelto] 20 mg PO 1200 10/18/17 [History] Rosuvastatin [Crestor] 20 mg PO DAILY 10/18/17 [History] Citalopram Hydrobromide [Celexa] 10 mg PO DAILY #30 tablet 10/21/17 [Rx] Lisinopril [Prinivil] 10 mg PO DAILY #90 tablet 10/21/17 [Rx] Past Medical History HEENT History: Reports: Hard of Hearing, Impaired Vision Other HEENT History: diplopia, Cardiovascular History: Reports: High Cholesterol, Hypertension, Pacemaker, Other (See Below) (A. fib) Other Cardiovascular History: dislipidemia, asymtomatic varicose veins Respiratory History: Reports: Other (See Below) Other Respiratory History: former smoker. Gastrointestinal History: Reports: GERD Genitourinary History: Reports: Urinary Incontinence, UTI, Recurrent, Other ( See Below) Other Genitourinary History: has overactive bladder-takes oxybutynin. [employer] History: Reports: Musculoskeletal History: Reports: Other (See Below) Other Musculoskeletal History: generalized weakness. Use walker for ambulation. Neurological History: Reports: CVA Psychiatric History: Reports: Depression Endocrine/Metabolic History: Reports: Hypothyroidism Oncologic (Cancer) History: Reports: Other (See Below) (Papillary thyroid carcinoma) - Infectious Disease History Infectious Disease History: Reports: Other (See Below) Other Infectious Disease History: pt poor historian for this information - Past Surgical History Respiratory Surgical History: Reports: Lung Biopsies Social & Family History - Family History Family Medical History: Noncontributory - Caffeine Use Caffeine Use: Reports: Coffee Other Caffeine Use: 1 cup a day ED ROS GENERAL - Review of Systems Review Of Systems: See Below Constitutional: Reports: Malaise, Weakness HEENT: Reports: Hearing Loss Respiratory: Reports: Shortness of Breath (hx of COPD) Cardiovascular: Reports: Dyspnea on Exertion (hx COPD) Endocrine: Reports: No Symptoms GI/Abdominal: Reports: No Symptoms : Reports: Incontinence Musculoskeletal: Reports: Other (some muscle weakness on R side) Skin: Reports: No Symptoms Neurological: Reports: Pre-Existing Deficit, Gait Disturbance Psychiatric: Reports: Other (some memory impairments) Hematologic/Lymphatic: Reports: No Symptoms Immunologic: Reports: No Symptoms ED EXAM, GENERAL - Physical Exam Exam: See Below Exam Limited By: No Limitations General Appearance: Alert, WD/WN, No Apparent Distress Eye Exam: Bilateral Eye: EOMI, Normal Inspection, PERRL Ears: Hearing Loss Nose: Normal Inspection Throat/Mouth: Normal Inspection, Normal Voice Head: Normocephalic Neck: Normal Inspection, Supple Respiratory/Chest: No Respiratory Distress, No Accessory Muscle Use, Chest Non- Tender, Decreased Breath Sounds, Prolonged Expiration Cardiovascular: Regular Rate, Rhythm, No Murmur GI/Abdominal: Normal Bowel Sounds, Soft, Non-Tender, No Organomegaly, No Distention, No Mass (Female) Exam: Deferred Rectal (Female) Exam: Deferred Back Exam: Normal Inspection, Full Range of Motion Extremities: Normal Inspection, Normal Range of Motion Neurological: Alert, CN II-XII Intact, Inattentive, Slow to Respond, Abnormal Gait (shuffling), Sensory/Motor Deficit (mild R sided motor weakness) Psychiatric: Flat Affect Skin Exam: Warm, Dry, Intact Lymphatic: No Adenopathy Course - Vital Signs Text/Narrative:: April's neurological exam was nonfocal. I had her stand with a walker, and ambulate for about 100 feet without difficulty. She was not unsteady on her feet. She is in need of assisted living and caregivers with services for PT and OT. Last Recorded V/S: Last Vital Signs Temp 36.4 C 10/23/17 17:17 Pulse 68 10/23/17 17:17 Resp 20 10/23/17 17:17 BP 151/99 H 10/23/17 17:17 Pulse Ox 94 L 10/23/17 17:17 Departure - Departure Time of Disposition: 18:07 Disposition: Home, Self-Care 01 Condition: Fair Clinical Impression: CVA, Cerebrovascular accident Fall Qualifiers: Encounter type: initial encounter Qualified Code(s): W19.XXXA - Unspecified fall, initial encounter - Discharge Information Referrals: Navi Zaragoza MD [Primary Care Provider] - - Problem List & Annotations (1) Fall SNOMED Code(s): 5574698, 071703794 Code(s): W19.XXXA - UNSPECIFIED FALL, INITIAL ENCOUNTER Status: Acute Current Visit: Yes Annotation/Comment:: Continue use of walker and PT. Qualifiers: Encounter type: initial encounter Qualified Code(s): W19.XXXA - Unspecified fall, initial encounter (2) CVA, Cerebrovascular accident SNOMED Code(s): 231311284 Code(s): I63.9 - CEREBRAL INFARCTION, UNSPECIFIED Status: Acute Current Visit: Yes Annotation/Comment:: Follow up with PCP. - Problem List Review Problem List Initiated/Reviewed/Updated: Yes - Assessment/Plan Plan: Follow up with PCP.
== END 2017-10-23 18:22 | disposition home or self-care (01) ==
LOC: FB.ED 17:17
DX: I63.9 Cerebral infarction, unspecified (principal); I10 Essential (primary) hypertension; E78.00 Pure hypercholesterolemia, unspecified; E03.9 Hypothyroidism, unspecified; E78.5 Hyperlipidemia, unspecified; I48.91 Unspecified atrial fibrillation; F32.9 Major depressive disorder, single episode, unspecified; Z79.899 Other long term (current) drug therapy; W19.XXXA Unspecified fall, initial encounter
CPT/HCPCS: 99284